=== PATIENT | female | born 1970 | race Caucasian/White ===

== ENCOUNTER → 2016-09-28 | Outpatient (CLI) | payer BC ==
[~2016-09-28] MED LIST: ACET-749 PO; CALC0.2510 PO; CALCTAB5 PO; LEVO175T3 PO; PHEN-876 PO
== END | disposition home or self-care (01) ==
LOC: C.PAPS 11:53
PROVIDERS: ATTEND Obstetrics & Gynecology
DX: Z01.419 Encounter for gynecological examination (general) (routine) without abnormal findings (principal)

== ENCOUNTER → 2017-01-09 | Outpatient (CLI) | payer BC ==
--- NOTE | 2017-01-10 07:58 | MAMMOGRAPHY REPORT ---
BILATERAL DIGITAL SCREENING MAMMOGRAM TOMOSYNTHESIS WITH CAD: 01/09/2017 CLINICAL HISTORY: Routine screening. Patient has no complaints. TECHNIQUE: Breast tomosynthesis in addition to standard 2D mammography was performed. Current study was also evaluated with a Computer Aided Detection (CAD) system. COMPARISON: Comparison is made to exams dated: 05/14/2014 mammogram, 05/08/2013 mammogram, 05/02/2012 mammogram, and 12/14/2010 mammogram - [facility]. BREAST COMPOSITION: There are scattered areas of fibroglandular density in both breasts. There are benign involutional changes compared to prior mammograms. FINDINGS: No new suspicious mass, architectural distortion or cluster of microcalcifications is seen . IMPRESSION: ACR BI-RADS CATEGORY 1: NEGATIVE There is no mammographic evidence of malignancy. A 1 year screening mammogram is recommended. The pa tient will receive written notification of the results. Approximately 10% of breast cancers are not detected with mammography. A negative mammographic report should not delay biopsy if a clinically suggestive mass is present. Keli Rust M.D. ay/:01/09/2017 17:04:09 Beamster: Donna VARELA(Rene)(Darrius), [facility] letter sent: Normal 1/2 BI-RADS Code: ACR BI-RADS Category 1: Negative
== END | disposition home or self-care (01) ==
LOC: C.MAMM 16:28
PROVIDERS: ATTEND Obstetrics & Gynecology
DX: Z12.31 Encounter for screening mammogram for malignant neoplasm of breast (principal)

== ENCOUNTER → 2017-12-28 | Outpatient (CLI) | payer OTHER ==
[~2017-12-28] MED LIST changes: -ACET-749 PO; +CALC-393 PO; -CALCTAB5 PO; -LEVO175T3 PO; +ONDA4TAB10 SL; -PHEN-876 PO; +THYR90TA PO; +TRAM-10 PO
--- NOTE | 2017-12-28 09:47 | DIAGNOSTIC IMAGING REPORT ---
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 Follow-up study in a patient with prior thyroidectomy. COMPARISON: Thyroid ultrasound 06/07/2015 TECHNIQUE: Multiple real time sonographic images of the thyroid bed were obtained accessing beckham scale appearance and color doppler flow. FINDINGS: Prior thyroidectomy. No focal mass or fluid collections about the thyroid bed. There are a few mildly prominent nonenlarged lymph nodes about the neck, largest which measures 1.1 x 0.3 x 0.9 cm with normal fatty hilum. Hypoechoic lymph node about the left neck is also seen measuring 1.1 x 0.4 x 0.8 cm, likely correlating with previously noted lymph node seen on study from 2016 which measured 0.6 x 0.7 x 0.4 cm. IMPRESSION: 1. Prior thyroidectomy without focal abnormality identified about the operative bed. 2. Mildly prominent nonenlarged lymph nodes about the left neck. No pathologically enlarged lymph nodes are identified. Attention at follow-up recommended. The above report was generated using voice recognition software. It may contain grammatical, syntax or spelling errors. Electronically signed by: Nixon Baker M.D. 12/28/2017 9:46 AM Dictated Date/Time: 12/28/2017 9:42 AM
== END | disposition home or self-care (01) ==
LOC: C.ULTR 09:07
PROVIDERS: ATTEND Internal Medicine Endocrinology, Diabetes & Metabolism
DX: C73 Malignant neoplasm of thyroid gland (principal); E89.0 Postprocedural hypothyroidism

== ENCOUNTER → 2018-01-10 | Outpatient (CLI) | payer OTHER ==
[2018-01-10 18:38] LABS: BLOOD UREA NITROGEN 16 mg/dl (7-18); CREATININE 0.82 mg/dl (0.60-1.20)
== END | disposition home or self-care (01) ==
LOC: C.LAB 17:32
PROVIDERS: ATTEND Urology
DX: C67.9 Malignant neoplasm of bladder, unspecified (principal)

== ENCOUNTER → 2018-01-11 | Outpatient (CLI) | payer OTHER ==
[~2018-01-11] MED LIST changes: +OPTIRAY 320 IV PRN
--- NOTE | 2018-01-11 09:19 | DIAGNOSTIC IMAGING REPORT ---
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 DELAYED UROGRAM TECHNIQUE: Multiaxial CT images of the abdomen and pelvis were performed following the use of intravenous contrast. A dose lowering technique was utilized adhering to the principles of ALARA. COMPARISON STUDY: 12/15/2017 FINDINGS: Lung bases are clear. Liver spleen and pancreas are unremarkable. Gallbladder is negative for distention. Kidneys enhance uniformly. Bowel pattern is considered nonobstructive. The adrenal glands are normal. Normal appendix. Uterus is anteflexed. It appears to demonstrate early potential myometrial fibroid involvement. Bladder is midline. Delayed images show no significant filling defect. There is no significant abdominal pelvic or inguinal jacinda pathology. Several small reactive nodes in the lateral region measuring up to 7 mm are noted bilaterally. IMPRESSION: 1. No acute process of the abdomen or pelvis. 2. Early fibroid uterus. 3. Otherwise negative study. The above report was generated using voice recognition software. It may contain grammatical, syntax or spelling errors. Electronically signed by: Jeromy Antoine M.D. 01/11/2018 9:17 AM Dictated Date/Time: 01/11/2018 9:03 AM
== END | disposition home or self-care (01) ==
LOC: C.CTS 08:24
PROVIDERS: ATTEND Urology
DX: C67.9 Malignant neoplasm of bladder, unspecified (principal); D25.9 Leiomyoma of uterus, unspecified

== ENCOUNTER 2021-10-19 08:18 | Inpatient (IN) ==
[2021-10-19] MEDS ORDERED: METOPROLOL TARTRATE 1 MG/ML VIAL IV STA ×3 (08:36→09:28)
[2021-10-19 09:00] LABS: Basophils # (auto) 0.01 K/uL (0-0.2); Basophils % (auto) 0.2 %; Eosinophils # (auto) 0.29 K/uL (0-0.5); Eosinophils % (auto) 4.4 %; Hematocrit (blood only) 45.6 % (37-47); Lymphocytes # (auto) 2.72 K/uL (1.2-3.4); Lymphocytes % (auto) 41.2 %; Mean Corpuscular Hemoglobin 27.5 pg (25-34); Mean Corpuscular Hgb Conc 32.9 g/dL (32-36); Mean Corpuscular Volume 83.7 fL (80-100); Mean Platelet Volume 10.4 fL (7.4-10.4); Monocytes # (auto) 0.48 K/uL (0.11-0.59); Monocytes % (auto) 7.3 %; Neutrophils % (auto) 46.9 %; Platelet Count 251 K/uL (130-400); RDW Coefficient of Variation 13.8 % (11.5-14.5); RDW Standard Deviation 41.9 fL (36.4-46.3); Red Blood Count 5.45 M/uL (4.2-5.4)
--- NOTE | 2021-10-19 09:11 | Emergency Department Note ---
Impression & Plan Atrial fibrillation with rapid ventricular response ED Provider Note INFORMANT: Patient ED PROVIDER(S): Marcelino Falk MD CHIEF COMPLAINT: Palpitations PLAN: Disposition: Admitted Condition: Good Outpatient prescription management: none Referral: None MEDICAL DECISION MAKING: Patient presented because of palpitations. She was found to be in rapid atrial fibrillation. Blood work was obtained.She was given 3 doses of IV metoprolol 5 mg. She still had mild tachycardia but did have improvement. A. fib was still present. Potassium was found to be slightly lower than expected threshold. The patient was given IV potassium. Chest x-ray was unremarkable. The patient and I discussed further management in the hospital. She was in agreement. [facility] The patient was evaluated in the emergency department admitted for further management. Triage Nursing notes reviewed and agree them. Vital Signs: reviewed and remarkable for tachycardia Differential: Premature contractions, electrolyte abnormality, cardiac dysrhythmia, thyroid dysfunction, pulmonary embolism, infection, gastrointestinal, as well as other pathologies. Diagnostics interpreted by me: ECG: Twelve-lead ECG reveals atrial fibrillation with rapid ventricular response at 130 bpm. Poor R wave progression anteriorly. No ST elevation or depression. No PVCs. Cardiac Monitoring: Cardiac monitoring ordered by me: The patient was placed on continuous cardiac monitoring and observed. It revealed atrial fibrillation at 142 bpm Imaging studies: Chest x-ray. Findings: A chest x-ray was performed and revealed no pneumothorax, effusion, infiltrate, pulmonary edema, free air under the diaphragm, or wide mediastinum. Impression: No acute disease. HPI: The patient is a 51 year old female who presents to the Emergency Room with complaints of palpitations. This started this morning and is persisting . The patient also notes the following associated symptoms, fluttering in her chest. Patient's Apple Watch said that she was in A. fib. The patient has taken no medication forrelieving factors. Current pain is rated as 0/10. No history of the same. Patient does have history of thyroid and bladder cancer.Pt denies LOC, headache, fevers, chills, diaphoresis, visual changes, neck pain, chest pain, breathing difficulties, nausea, vomiting, abdominal pain, back pain, melena, hematochezia, urinary symptoms, numbness, weakness, lymphadenopathy, rash, or other complaints. ROS: See above HPI for pertinent positives & negatives. A total of 10 systems reviewed and were otherwise negative. PAST MEDICAL HISTORY:See Below , bladder cancer, thyroid cancer on replacement PAST SURGICAL HISTORY:See Below, FAMILY HISTORY:See Below SOCIAL HISTORY:See Below, non-smoker. No alcohol. HOME MEDICATIONS:See Below ALLERGIES:See Below VITALS:See Below PHYSICAL EXAMINATION: GENERAL: Awake, alert, well-appearing, in no distress HENT: Normocephalic, atraumatic. Oropharynx unremarkable. EYES: Normal conjunctiva. Sclera non-icteric. NECK: Inspection normal. Non-tender. Supple. No nuchal rigidity. FROM. No masses. RESPIRATORY: Clear to auscultation. No wheezes. No rales. Normal respiratory effort. CARDIAC: Tachycardic rate. Irregular rhythm. No murmurs. No rubs. Extremities warm and well perfused. Pulses equal. No JVD. GI: Soft, non-distended. No tenderness to palpation. No rebound or guarding. No masses. RECTAL: Deferred. MUSCULOSKELETAL: Atraumatic. Chest examination reveals no tenderness. The back i s symmetrical on inspection without obvious abnormality. There is no CVA tenderness to palpation. No joint edema. LOWER EXTREMITIES: Calves are equal size bilaterally and non-tender. No edema. No discoloration. NEURO: Normal sensorium. No sensory or motor deficits noted. SKIN: No rash or jaundice noted. CRITICAL CARE: I have personally spent greater than 31 minutes of critical care time in the direct management of this patient. This includes bedside care, interpretation of diagnostic studies, and testing, discussion with consultants, patient, and other required patient management activities. These minutes are in excess of all separately billable procedures. Marcelino Falk MD Past Med/Surg History Medical History ASCUS of cervix with negative high risk HPV (04/2021) distant h/o LEEP -> repeat in 12 months (05/18) Hx of papillary thyroid carcinoma s/p thyroidectomy-1995 Hypoparathyroidism Hypothyroidism, postablative Transitional cell carcinoma of bladder Surgical History History of History of colonoscopy 2020 History of cystoscopy tumor removal History of esophagogastroduodenoscopy (EGD) History of loop electrical excision procedure (LEEP) History of neck surgery TO REMOVE LYMPH NODES Hx of dilation and curettage Hx of hand surgery left ulnar ligament repair Hx of tonsillectomy Hx of tooth extraction wisdom teeth Hx of total thyroidectomy Family History Father Melanoma Brother Thyroid cancer Hypertension Denies family history of Ovarian cancer Prostate cancer Myocardial infarction Breast cancer Colorectal cancer Social History Smoking Status: Never smoker Second Hand Exposure: No; Hx Alcohol Use: Yes Alcohol type: hard liquor Alcohol type Comment: social Alcohol Intake Frequency: Monthly or Less Hx Substance Use: No Preferred Language: Icelandic Communication Ability: Effective Visual Impairment: No Limitations Hearing Ability: Normal Theatre Director Required: No Beliefs That Will Affect Care: None marital status: Current Living Situation: Spouse Current Living Situation Comment: LIVES WITH SPOUSE, 2 CHILDREN 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al status: employed 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: [employer] Other Information That Helps Us Care for You: No 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 Feels Safe at Home: Yes Safety Concerns: Feels Safe At This Time Childhood Exposure to Second-Hand Smoke: No Dental Care, Regularly: Yes Physical Activity Frequency: 3-4 Times per Week Seatbelt Use: always Sunscreen Use: Yes Assistive Devices: Glasses Allergies Allergies Allergy/AdvReac Type Severity Reaction Status Date / Time Penicillins Allergy Intermediate rash Verified 10/19/21 09:12 oxycodone AdvReac Mild vomiting Verified 10/19/21 09:12 Home Meds Home Medications Medication Instructions Recorded Confirmed Calcium Patch 500 mg TRANSDERMAL DAILY PRN 12/20/20 10/19/21 calcitriol 0.25 mcg capsule 0.25 mcg PO BID 10/19/21 10/19/21 thyroid (pork) 15 mg tablet 15 mg PO QDL 10/19/21 10/19/21 ([place] Thyroid) thyroid (pork) 90 mg tablet 90 mg PO QAM 10/19/21 10/19/21 ([place] Thyroid) Previous Rx's Medication Instructions Recorded calcium carbonate 500 mg calcium 500 mg PO TID #90 tab 01/22/20 (1,250 mg) tablet Results & Data (ED) Vital Signs Vital Signs - 24 hr 10/19/21 08:20 10/19/21 08:34 10/19/21 08:43 Temperature 36.4 C L Temperature Source Temporal Artery Scan Pulse Rate 122 H 137 H 140 H Pulse Rate from SpO2 Sensor 118 H Respiratory Rate 18 27 H Respiratory Effort / Characteristics Non-Labored Respiratory Depth Normal Respiratory Pattern Regular Blood Pressure 150/102 H 149/109 H Blood Pressure Mean 118 Pulse Oximetry 100 99 Oxygen Delivery Method Room Air Sepsis Recent Fever Within 48 Hours No Sepsis New/Unexplained Change in Mental Status No Sepsis Action Taken by Nursing No Action Required 10/19/21 09:00 10/19/21 09:16 10/19/21 09:30 Temperature Temperature Source Pulse Rate 121 H 131 H 117 H Pulse Rate from SpO2 Sensor 113 H 109 H Respiratory Rate 23 21 Respiratory Effort / Characteristics Respiratory Depth Respiratory Pattern Blood Pressure 137/110 H 137/110 H 132/91 Blood Pressure Mean 119 104 Pulse Oximetry 98 96 Oxygen Delivery Method Sepsis Recent Fever Within 48 Hours Sepsis New/Unexplained Change in Mental Status Sepsis Action Taken by Nursing 10/19/21 09:40 10/19/21 10:00 10/19/21 10:15 Temperature Temperature Source Pulse Rate 113 H 110 H 158 H Pulse Rate from SpO2 Sensor 114 H 118 H Respiratory Rate 20 19 Respiratory Effort / Characteristics Respiratory Depth Respiratory Pattern Blood Pressure 132/91 118/89 Blood Pressure Mean 98 Pulse Oximetry 97 93 Oxygen Delivery Method Sepsis Recent Fever Within 48 Hours Sepsis New/Unexplained Change in Mental Status Sepsis Action Taken by Nursing 10/19/21 10:30 10/19/21 10:31 10/19/21 10:45 Temperature Temperature Source Pulse Rate 122 H 130 H 122 H Pulse Rate from SpO2 Sensor 121 H 119 H 118 H Respiratory Rate 18 26 H 26 H Respiratory Effort / Characteristics Respiratory Depth Respiratory Pattern Blood Pressure 129/106 H Blood Pressure Mean 113 Pulse Oximetry 99 94 99 Oxygen Delivery Method Sepsis Recent Fever Within 48 Hours Sepsis New/Unexplained Change in Mental Status Sepsis Action Taken by Nursing 10/19/21 11:00 Temperature Temperature Source Pulse Rate 124 H Pulse Rate from SpO2 Sensor 118 H Respiratory Rate 30 H Respiratory Effort / Characteristics Respiratory Depth Respiratory Pattern Blood Pressure 127/96 Blood Pressure Mean 106 Pulse Oximetry 98 Oxygen Delivery Method Sepsis Recent Fever Within 48 Hours Sepsis New/Unexplained Change in Mental Status Sepsis Action Taken by Nursing Laboratory Data Result diagrams: 10/19/21 08:45 10/19/21 08:45 Lab Results 10/19/21 10/19/21 10/19/21 Range/Units 08:45 08:45 08:45 WBC 6.60 (4.8-10.8) K/uL RBC 5.45 H (4.2-5.4) M/uL Hgb 15.0 (12.0-16.0) g/dL Hct 45.6 (37-47) % MCV 83.7 (80-100) fL MCH 27.5 (25-34) pg MCHC 32.9 (32-36) g/dL RDW Std Deviation 41.9 (36.4-46.3) fL RDW Coeff of Dayne 13.8 (11.5-14.5) % Plt Count 251 (130-400) K/uL MPV 10.4 (7.4-10.4) fL Immature Gran % (Auto) 0.0 % Neut % (Auto) 46.9 % Lymph % (Auto) 41.2 % [place] % (Auto) 7.3 % Eos % (Auto) 4.4 % Baso % (Auto) 0.2 % Neut # (Auto) 3.10 (1.4-6.5) K/uL Lymph # (Auto) 2.72 (1.2-3.4) K/uL [place] # (Auto) 0.48 (0.11-0.59) K/uL Eos # (Auto) 0.29 (0-0.5) K/uL Baso # (Auto) 0.01 (0-0.2) K/uL Immature Gran # (Auto) 0.00 (0.00-0.02) K/uL Sodium 141 (136-145) mmol/L Potassium 3.7 (3.5-5.1) mmol/L Chloride 105 (98-107) mmol/L Carbon Dioxide 30 (21-32) mmol/L Anion Gap 6 (3-11) BUN 18 (6-23) mg/dl Creatinine 0.84 (0.6-1.2) mg/dl Est Cr Clr Drug Dosing 83.3 ml/min Est GFR ( Amer) 93.3 ml/min Est GFR (Non-Af Amer) 80.5 ml/min BUN/Creatinine Ratio 21.4 H (10-20) Glucose 87 (70-99(Fasting)) mg/dl Calcium 9.5 (8.5-10.1) mg/dl Magnesium 2.2 (1.7-2.4) mg/dl Total Bilirubin 0.9 (0.2-1.0) mg/dl AST 17 (13-39) U/L ALT 23 (7-52) U/L Alkaline Phosphatase 107 H (34-104) U/L Troponin I High Sens 3.0 (0-14) pg/ml Total Protein 7.7 (6.0-8.3) gm/dl Albumin 4.7 (3.4-5.0) gm/dl Globulin 3.0 (2.5-4.0) gm/dl Albumin/Globulin Ratio 1.6 (0.9-2) TSH < 0.010 L (0.300-4.500) uIu/ml Free T4 0.81 (0.61-1.60) ng/dl SARS-CoV-2, RNA, NAAT (NEGATIVE) 10/19/21 Range/Units 08:45 WBC (4.8-10.8) K/uL RBC (4.2-5.4) M/uL Hgb (12.0-16.0) g/dL Hct (37-47) % MCV (80-100) fL MCH (25-34) pg MCHC (32-36) g/dL RDW Std Deviation (36.4-46.3) fL RDW Coeff of Dayne (11.5-14.5) % Plt Count (130-400) K/uL MPV (7.4-10.4) fL Immature Gran % (Auto) % Neut % (Auto) % Lymph % (Auto) % [place] % (Auto) % Eos % (Auto) % Baso % (Auto) % Neut # (Auto) (1.4-6.5) K/uL Lymph # (Auto) (1.2-3.4) K/uL [place] # (Auto) (0.11-0.59) K/uL Eos # (Auto) (0-0.5) K/uL Baso # (Auto) (0-0.2) K/uL Immature Gran # (Auto) (0.00-0.02) K/uL Sodium (136-145) mmol/L Potassium (3.5-5.1) mmol/L Chloride (98-107) mmol/L Carbon Dioxide (21-32) mmol/L Anion Gap (3-11) BUN (6-23) mg/dl Creatinine (0.6-1.2) mg/dl Est Cr Clr Drug Dosing ml/min Est GFR ( Amer) ml/min Est GFR (Non-Af Amer) ml/min BUN/Creatinine Ratio (10-20) Glucose (70-99(Fasting)) mg/dl Calcium (8.5-10.1) mg/dl Magnesium (1.7-2.4) mg/dl Total Bilirubin (0.2-1.0) mg/dl AST (13-39) U/L ALT (7-52) U/L Alkaline Phosphatase (34-104) U/L Troponin I High Sens (0-14) pg/ml Total Protein (6.0-8.3) gm/dl Albumin (3.4-5.0) gm/dl Globulin (2.5-4.0) gm/dl Albumin/Globulin Ratio (0.9-2) TSH (0.300-4.500) uIu/ml Free T4 (0.61-1.60) ng/dl SARS-CoV-2, RNA, NAAT NEGATIVE (NEGATIVE) Administered Medications Diltiazem HCl 125 mg/ Dextrose 125 mls @ 12.5 mls/hr IV .Q10H TAY; Protocol Stop: 11/18/21 11:29 Last Titration: 10/19/21 14:12 Dose: 12.5 mg/hr, 12.5 mls/hr Documented by: [id number] Cosigned by: [id number] Titration: 10/19/21 12:34 Dose: 10 mg/hr, 10 mls/hr Documented by: [id number] Cosigned by: [id number] Titration: 10/19/21 11:55 Dose: 7.5 mg/hr, 7.5 mls/hr Documented by: [id number] Cosigned by: [id number] Admin: 10/19/21 11:31 Dose: 5 mg/hr, 5 mls/hr Documented by: [id number] Cosigned by: [id number] Discontinued Medications Potassium Chloride (K Tyshawn / Wtr) 10 meq in 100 mls @ 100 mls/hr IV ONE ONE; Protocol Stop: 10/19/21 10:22 Last Infusion: 10/19/21 10:43 Dose: 0 mls/hr Documented by: [id number] Admin: 10/19/21 09:41 Dose: 100 mls/hr Documented by: [id number] Sodium Chloride (Nss 1000ml) 1,000 mls @ 999 mls/hr IV .Q1H1M ONE Stop: 10/19/21 10:25 Last Infusion: 10/19/21 10:44 Dose: 0 mls/hr Documented by: [id number] Admin: 10/19/21 09:41 Dose: 999 mls/hr Documented by: [id number] Metoprolol Tartrate (Metoprolol Tartrate 1 Mg/Ml Vial) 5 mg IV NOW STA Stop: 10/19/21 08:37 Last Admin: 10/19/21 08:43 Dose: 5 mg Documented by: [id number] Metoprolol Tartrate (Metoprolol Tartrate 1 Mg/Ml Vial) 5 mg IV NOW STA Stop: 10/19/21 09:13 Last Admin: 10/19/21 09:16 Dose: 5 mg Documented by: [id number] Metoprolol Tartrate (Metoprolol Tartrate 1 Mg/Ml Vial) 5 mg IV NOW STA Stop: 10/19/21 09:29 Last Admin: 10/19/21 09:40 Dose: 5 mg Documented by: [id number] Discharge Plan Visit Data Chief Complaint: Arrhythmia/Palpitations Stated Complaint: PALPITATIONS ED Provider: Marcelino Falk Discharge Problem: Atrial fibrillation with rapid ventricular response Patient Disposition: Admitted As Inpatient Discharge Instructions Interventions: ED Discharge Assessment Last Done: 10/19/21 13:14
[2021-10-19 09:17] LABS: Albumin Globulin Ratio 1.6 (0.9-2); Albumin Level 4.7 gm/dl (3.4-5.0); BUN Creatinine Ratio 21.4 (10-20); Bilirubin,Total 0.9 mg/dl (0.2-1.0); Calcium 9.5 mg/dl (8.5-10.1); Creatinine Clr Calc Pharmacy 83.3 ml/min; Est GFR (African American) 93.3 ml/min; Est GFR (Non-African American) 80.5 ml/min; Magnesium 2.2 mg/dl (1.7-2.4); Potassium 3.7 mmol/L (3.5-5.1); Total Protein 7.7 gm/dl (6.0-8.3)
[2021-10-19] MEDS ORDERED: POTASSIUM CHLORIDE / WTR 10 MEQ/100 ML PLCT IV ONE (09:23)
[2021-10-19] MEDS ORDERED: SODIUM CHLORIDE 0.9% 1000ML 1,000 ML IV ONE (09:25)
[2021-10-19 09:30] LABS: Thyroid Stimulating Hormone < 0.010 uIu/ml (0.300-4.500)
[2021-10-19 10:05] LABS: T4 Free Thyroxine 0.81 ng/dl (0.61-1.60)
--- NOTE | 2021-10-19 10:24 | History & Physical Report ---
Date of Service October 19, 2021 Assessment & Plan (1) Atrial fibrillation with rapid ventricular response: Plan: - Symptoms include palpitations, onset 7:30 AM this morning, with TSH undetectable in ED, thyroid suspected to be cause. No electrolyte abnormalities, no illness. - Potassium, NSS, 5 mg IV Lopressor x3 in ED without conversion to NSR. - Start Cardizem drip, order echo, consult cardiology for potential cardioversion should patient not convert with medications, given symptom onset within 12 hours, [id number] score of 1 (point for female gender). 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 (2) Hypothyroidism: Plan: - s/p thyroidectomy in 1995 for papillary thyroid CA. - Currently on [place] Thyroid 90 mg in the morning, 15 mg in the afternoon, with option to skip 15 mg dose if feeling too hyper, but has been taking it regularly as of late. Last TSH checked in Jun 2021 was 0.06 on this dose, no adjustments made at that time. - To discuss medications adjustments with endocrinology as above. Holding thyroid medication for at least today. (3) Hypoparathyroidism: Plan: - s/p thyroidectomy in 1995. - Calcium patch in AM, 500 mg calcium twice daily, and calcitriol 0.25 mcg twice daily. - Ca 9.5 today. - Follow on routine labs. (4) Bladder cancer: Plan: - History of in 2012, last positive biopsy in 2013, follows with urology regularly for cystoscopy q3 months with BCG therapy, off tx for September but to resume in October. Plan: - Admit to PCU. - SCDs for DVT ppx. - Full Code. History of Present Illness Chief Complaint: Palpitations x3 hours Primary Care Provider: ALYSSA Centeno Mrs. 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 Patient was on her way to work when she felt her heart racing. At a stoplight she observed a heart rate of 118 on her apple watch, and on the ECG lino, she was reported to be in A. fib. She presented to our ED immediately for evaluation. She has otherwise been without symptoms, she reports that on and off for the past few years she has experienced palpitations and has had her thyroid medications adjusted cortically, but had not experienced them recently and was in her normal state of health this week until this occurred. No chest pain/tightness, weakness, lightheadedness, dizziness, headache, shortness of breath, abdominal pain, nausea, vomiting. In the ED, she presented with HR 120s to 140s. Mildly hypertensive, otherwise vital signs within normal limits and stable. Labs significant for undetectable TSH, free T4 0.81. Found to be in A. fib with RVR on EKG. Allergies Allergy/AdvReac Type Severity Reaction Status Date / Time Penicillins Allergy Intermediate rash Verified 10/19/21 09:12 oxycodone AdvReac Mild vomiting Verified 10/19/21 09:12 Home Medications Medication Instructions Recorded Confirmed Type calcium carbonate 500 mg calcium 500 mg PO TID #90 tab 01/22/20 10/19/21 Rx (1,250 mg) tablet Calcium Patch 500 mg TRANSDERMAL DAILY PRN 12/20/20 10/19/21 History calcitriol 0.25 mcg capsule 0.25 mcg PO BID 10/19/21 10/19/21 History thyroid (pork) 15 mg tablet 15 mg PO QDL 10/19/21 10/19/21 History ([place] Thyroid) thyroid (pork) 90 mg tablet 90 mg PO QAM 10/19/21 10/19/21 History ([place] Thyroid) Past Med/Surg History Medical History ASCUS of cervix with negative high risk HPV (04/2021) distant h/o LEEP -> repeat in 12 months (05/18) Hx of papillary thyroid carcinoma s/p thyroidectomy-1995 Hypoparathyroidism Hypothyroidism, postablative Transitional cell carcinoma of bladder Surgical History History of History of colonoscopy 2020 History of cystoscopy tumor removal History of esophagogastroduodenoscopy (EGD) History of loop electrical excision procedure (LEEP) History of neck surgery TO REMOVE LYMPH NODES Hx of dilation and curettage Hx of hand surgery left ulnar ligament repair Hx of tonsillectomy Hx of tooth extraction wisdom teeth Hx of total thyroidectomy Family History Father Melanoma Brother Thyroid cancer Hypertension Denies family history of Ovarian cancer Prostate cancer Myocardial infarction Breast cancer Colorectal cancer Social History Smoking Status: Never smoker Second Hand Exposure: No; Hx Alcohol Use: Yes Alcohol type: hard liquor Alcohol type Comment: social Alco hol Intake Frequency: Monthly or Less Hx Substance Use: No Preferred Language: Albanian Communication Ability: Effective Visual Impairment: No Limitations Hearing Ability: Normal 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 Beliefs That Will Affect Care: None marital status: Current Living Situation: Spouse and Family Current Living Situation Comment: LIVES WITH SPOUSE, 2 CHILDREN 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al status: employed 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: [employer] 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 FAIRCHILD, no chest pain, tightness or palpitations Abdomen: No pain, nausea, vomiting, diarrhea or constipation : Denies dysuria, hematuria, increased urgency/frequency, urinary retention Musculoskeletal: No joint pain, calf pain, swelling Neurologic: No weakness, numbness/tingling, or balance problems Psychiatric: No anxiety or depression Skin: No rash or itch Physical Exam Physical Exam: General: awake, alert, no apparent distress Head: Normocephalic, atraumatic ENT: PERRL, EOMI, no pharyngeal exudate, mucous membranes moist Chest: Clear to auscultation, on room air, no adventitious breath sounds Cardiac: Irregularly irregular rhythm consistent with A. fib; no murmur, no JVD, normal peripheral pulses, good capillary refill Abdominal: NABS x 4 quadrants, soft, nontender to palpation, no rebound, guarding or tenderness Extremities: Normal inspection, no peripheral edema or erythema, calfs nontender to palpation Psych: Normal mood and affect Neuro: AAO x 3, strength intact bilaterally and rated 5/5, no motor deficits, speech is clear, no peripheral sensory deficits Skin: no rash or erythema Results & Data Results & Data ([facility]) Vital Signs (Past 12 Hours) Vital Signs Temp Pulse Resp BP Pulse Ox 10/19/21 10:00 110 H 20 118/89 97 10/19/21 09:40 113 H 132/91 10/19/21 09:30 117 H 21 132/91 96 10/19/21 09:16 131 H 137/110 H 10/19/21 09:00 121 H 23 137/110 H 98 10/19/21 08:43 140 H 149/109 H 10/19/21 08:34 137 H 27 H 99 10/19/21 08:20 36.4 C L 122 H 18 150/102 H 100 Laboratory Results Abnormal lab results 10/19/21 10/19/21 10/19/21 Range/Units 08:45 08:45 08:45 RBC 5.45 H (4.2-5.4) M/uL BUN/Creatinine Ratio 21.4 H (10-20) Alkaline Phosphatase 107 H (34-104) U/L TSH < 0.010 L (0.300-4.500) uIu/ml ECG Additional Comments: Atrial fibrillation with rapid ventricular response Cannot rule out Anterior infarct , age undetermined Abnormal ECG When compared with ECG of 12-APR-2020 09:50, Atrial fibrillation has replaced Sinus rhythm Vent. rate has increased BY 70 BPM QRS axis Shifted right ST now depressed in Lateral leads T wave inversion no longer evident in Inferior leads T wave amplitude has decreased in Lateral leads 25mm/s10mm/[id number] 241CID: 10U. Code Status & VTE Plan Code Status Full Code. Supervising Physician Co-Signing Physician Notes Attending Attestation & Admit Note: Pt seen/examined, chart reviewed, care plan d/w MITCH Lockwood. I agree w/ the weiss components of her documentation. Pleasant 51yo female with history of papillary thyroid ca s/p thyroidectomy, hypoparathyroidism, and bladder ca on BCG treatments who presented with the acute onset of rapid a.fib. Symptoms began about 0800 with rapid pulse & palpitations. She has an Apple Watch which correctly diagnosed her with a.fib. Upon seeing her phone showing this possible diagnosis she came to the ER for treatment. Presenting EKG indeed showed rapid a.fib. Despite 3 doses of IV lopressor 5mg her HRs have failed to slow to <100 BPM. During my assessment she was resting comfortably. Denies any recent heavy etoh intake, illnesses, or changes in her medications. Denies excessive caffeine intake or OTC medications. PMH/PSH/allergies/meds/sochx/famhx - reviewed vitals - HR>100, BP wnl, O2 sats wnl gen - NAD neck - no JVD heart - tachy, irregularly irregular, s1 s2, no murmur lungs - CTA b/l abd - soft NT ND BS+ ext - no edema, peripheral pulses 2+ b/l labs reviewed; TSH undetectable; FT4 0.8 K and mag and Ca wnl EKG - my reading - rapid a.fib, no ST changes A/P: New-onset paroxysmal a.fib with RVR. h/o papillary thyroid cancer. acquired hypothyroidism. iatrogenic hyperthyroidism with undetectable TSH. Admit to tele; cardizem infusion with HR goal <100; cards consult; echo. Lopressor IV prn. Will reach out to Dr Weber from endo re: her [place] Thyroid dose; may need dose decrease as iatrogenic hyperthyroidism from meds could be contributing to PAF risk. Defer that decision to Dr Weber. Hopefully patient will spontaneously convert to NSR. Low CHADS-VASc score thus defer on AC for now. Steffen Durant MD PG Care Time/CCT Total # of Minutes Spent Total Time Spent with Patient: Total time spent is greater than 50% in coordination of care (as documented) at patient's floor/unit and/or counseling patient: Coding Level of Care Code 62569 Initial Inpt Care Lvl 3 Diagnoses Atrial fibrillation with rapid ventricular response I48.91 Hypothyroidism E89.0 Hypothyroidism type: postoperative Bladder cancer C67.9 Hypoparathyroidism E20.9 (1) Hypothyroidism Hypothyroidism type: postoperative Qualified Code(s): E89.0 - Postprocedural hypothyroidism
[2021-10-19] MEDS ORDERED: STAT IV Infusion **Titration per Protocol STA (11:00)
[2021-10-19] MEDS: dilTIAZem HCL 125 MG in DEXTROSE 5% 100 ML IV SCH ×2 (11:31→22:23)
--- NOTE | 2021-10-19 13:14 | Electrocardiogram Report ---
Test Reason : Blood Pressure : / mmHG Vent. Rate : 130 BPM Atrial Rate : 125 BPM P-R Int : 000 ms QRS Dur : 086 ms QT Int : 310 ms P-R-T Axes : 000 065 038 degrees QTc Int : 456 ms Atrial fibrillation with rapid ventricular response Poor R wave progression, consider anterior MO vs. lead placement vs. LVH Abnormal ECG When compared with ECG of 12-APR-2020 09:50, Atrial fibrillation has replaced Sinus rhythm Vent. rate has increased BY 70 BPM Confirmed by Armen Azar ([id number]) on 10/19/2021 1:13:48 PM Referred By: REFERRED SELF Confirmed By:Armen Azar
[2021-10-19] MEDS ORDERED: POLYETHYLENE (MIRALAX) 17 GM PACK PO PRN (13:58)
[2021-10-19] MEDS ORDERED: ACETAMINOPHEN 325 MG TAB PO PRN (13:58)
[2021-10-19] MEDS ORDERED: ONDANSETRON INJ 2 MG/ML 2 ML VIAL IV PRN (13:58)
[2021-10-19] MEDS ORDERED: METOPROLOL TARTRATE 1 MG/ML VIAL IV PRN (14:27)
[2021-10-19] MEDS ORDERED: METOPROLOL TARTRATE 25 MG TAB PO STA (15:36)
--- NOTE | 2021-10-19 15:36 | Cardiology Consultation ---
Date of Consultation October 19, 2021 Assessment & Plan (1) Atrial fibrillation with rapid ventricular response: -episode likely secondary to over replacement of thyroid hormone. -ventricular response improving on diltiazem drip. -would add intravenous an oral beta blockade. -hopefully she will convert on her own. -CHADSVasc score is 1. -would hold off on long-term anticoagulation at this time. (2) Hypothyroidism: -management per hospitalist team and endocrinology. History of Present Illness Attending Physician: Steffen Durant History of Present Illness Mrs. Ledesma is a 51-year-old female admitted earlier today with atrial fibrillation and a rapid ventricular response. This consultation was ordered to assist in her cardiac management. The patient was in her usual state of health until approximately 730 this morning while driving to work. She had the abrupt onset of palpitations and a rapid and irregular heart rate. She checked her Apple watch which noted her heart rate to be in the 120-150 range with a read out of atrial fibrillation. She eventually presented to the emergency room for further care. On arrival here, patient was in atrial fibrillation with a rapid ventricular response. She was given 3 doses of intravenous metoprolol with little change in her ventricular response. She was then started on a diltiazem drip which helped control her ventricular response. The patient did not experience other symptoms such as chest pain, dyspnea, syncope, or presyncope with her atrial fibrillation. The patient has iatrogenic hypothyroidism as she had a complete thyroidectomy performed for papillary thyroid carcinoma back in 1995. She is currently taking [place] thyroid. Her TSH level was undetectable at the time of presentation today. Currently, patient is resting comfortably in bed noting only mild palpitations. Past medical and surgical history 1. Iatrogenic hypothyroidism 2. Iatrogenic hypoparathyroidism 3. Papillary thyroid carcinoma -1995 4. Complete thyroidectomy -1995 5. Transitional cell carcinoma of the bladder-BCG Rx, October 2012 6. D&C 7. LEEP 8. Left hand surgery 9. 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 Allergies Allergy/AdvReac Type Severity Reaction Status Date / Time Penicillins Allergy Intermediate rash Verified 10/19/21 09:12 oxycodone AdvReac Mild vomiting Verified 10/19/21 09:12 Home Medications Medication Instructions Recorded Confirmed Type calcium carbonate 500 mg calcium 500 mg PO TID #90 tab 01/22/20 10/19/21 Rx (1,250 mg) tablet Calcium Patch 500 mg TRANSDERMAL DAILY PRN 12/20/20 10/19/21 History calcitriol 0.25 mcg capsule 0.25 mcg PO BID 10/19/21 10/19/21 History thyroid (pork) 15 mg tablet 15 mg PO QDL 10/19/21 10/19/21 History ([place] Thyroid) thyroid (pork) 90 mg tablet 90 mg PO QAM 10/19/21 10/19/21 History ([place] Thyroid) Patient History Medical History ASCUS of cervix with negative high risk HPV (04/2021) distant h/o LEEP -> repeat in 12 months (05/18) Hx of papillary thyroid carcinoma s/p thyroidectomy-1995 Hypoparathyroidism Hypothyroidism, postablative Transitional cell carcinoma of bladder Surgical History History of History of colonoscopy 2020 History of cystoscopy tumor removal History of esophagogastroduodenoscopy (EGD) History of loop electrical excision procedure (LEEP) History of neck surgery TO REMOVE LYMPH NODES Hx of dilation and curettage Hx of hand surgery left ulnar ligament repair Hx of tonsillectomy Hx of tooth extraction wisdom teeth Hx of total thyroidectomy Family History Father Melanoma Brother Thyroid cancer Hypertension Denies family history of Ovarian cancer Prostate cancer Myocardial infarction Breast cancer Colorectal cancer Social History Smoking Status: Never smoker Second Hand Exposure: No; Hx Alcohol Use: Yes Alcohol type: hard liquor Alcohol type Comment: social Alcohol Intake Frequency: Monthly or Less Hx Substance Use: No Preferred Language: Icelandic Communication Ability: Effective Visual Impairment: No Limitations Hearing Ability: Normal Social Science Teacher Required: No Beliefs That Will Affect Care: None marital status: Current Living Situation: Spouse Current Living Situation Comment: LIVES WITH SPOUSE, 2 CHILDREN 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al status: employed 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: [employer] Other Information That Helps Us Care for You: No 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 HEENT exam is negative. Neck is supple with full carotid upstrokes. There are no carotid bruits. Jugular venous pressure is flat at 90. There is no thyromegaly. Cardiovascular exam reveals an irregularly irregular rhythm. No obvious murmurs. Lungs are clear without rales, rhonchi, or wheezes. Abdomen is soft and nontender without bruits. Extremities reveal intact radial artery and posterior tibial pulses bilaterally. There is no peripheral edema. Results & Data ([facility]) Vital Signs (Past 12 Hours) Vital Signs Temp Pulse Pulse Resp BP BP Pulse Ox 10/19/21 13:49 37.1 C 122 H 16 110/76 97 10/19/21 12:30 110 H 14 123/101 H 97 10/19/21 11:55 126 H 21 134/100 98 10/19/21 11:51 121 H 23 125/105 H 97 10/19/21 11:50 127 H 18 97 10/19/21 11:46 110 H 22 133/86 97 10/19/21 11:45 120 H 43 H 98 10/19/21 11:40 108 H 20 96 10/19/21 11:35 121 H 21 128/87 96 10/19/21 11:30 128 H 20 128/101 H 97 10/19/21 11:25 106 H 27 H 97 10/19/21 11:20 125 H 19 98 10/19/21 11:15 131 H 21 98 10/19/21 11:00 124 H 30 H 127/96 98 10/19/21 10:45 122 H 26 H 99 10/19/21 10:31 130 H 26 H 129/106 H 94 10/19/21 10:30 122 H 18 99 10/19/21 10:15 158 H 19 93 10/19/21 10:00 110 H 20 118/89 97 10/19/21 09:40 113 H 132/91 10/19/21 09:30 117 H 21 132/91 96 10/19/21 09:16 131 H 137/110 H 10/19/21 09:00 121 H 23 137/110 H 98 10/19/21 08:43 140 H 149/109 H 10/19/21 08:34 137 H 27 H 99 10/19/21 08:20 36.4 C L 122 H 18 150/102 H 100 Laboratory Results CBC notes hemoglobin 15.0, hematocrit 45.6, white count 6.6, and platelet count [id number]. Electrolytes note a sodium of 141, potassium 3.7, chloride 105, bicarb 30, BUN 18, creatinine 0.84, and glucose of 87. TSH was less than 0.01. Free T4 was 0.81. Diagnostic Findings EKG notes atrial fibrillation with a rapid ventricular response. Echocardiogram notes normal left ventricular systolic function without wall motion abnormalities. PG Care Time/CCT Total # of Minutes Spent Total Time Spent with Patient: Total time spent is greater than 50% in coordination of care (as documented) at patient's floor/unit and/or counseling patient: Coding Level of Care Code 43279 Office/OBS Consult Lvl 4 Diagnoses Atrial fibrillation with rapid ventricular response I48.91 Hypothyroidism E89.0 Hypothyroidism type: postoperative (1) Hypothyroidism Hypothyroidism type: postoperative Qualified Code(s): E89.0 - Postprocedural hypothyroidism
--- NOTE | 2021-10-19 16:06 | XCELERA ---
[id number]
[2021-10-19] MEDS: METOPROLOL TARTRATE 25 MG TAB PO SCH (21:51)
[2021-10-19] MEDS: CALCIUM CARBONATE 1250MG TAB PO SCH (22:23)
[2021-10-19] MEDS: CALCITRIOL 0.25 MCG CAPSULE PO SCH (22:23)
[2021-10-20] MEDS ORDERED: SODIUM CHLORIDE 0.9% 1000ML 1,000 ML IV ONE (01:11)
[2021-10-20] MEDS ORDERED: CALCIUM 500 MG TD SCH (09:00)
[2021-10-20] MEDS: CALCIUM CARBONATE 1250MG TAB PO SCH (09:07)
[2021-10-20] MEDS: CALCITRIOL 0.25 MCG CAPSULE PO SCH (09:07)
[2021-10-20] MEDS: METOPROLOL TARTRATE 25 MG TAB PO SCH (09:40)
--- NOTE | 2021-10-20 12:55 | Discharge Summary ---
Date of Service October 20, 2021 Admission HPI Per Admitting Provider Mrs. 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 Patient was on her way to work when she felt her heart racing. At a stoplight she observed a heart rate of 118 on her apple watch, and on the ECG lino, she was reported to be in A. fib. She presented to our ED immediately for evaluation. She has otherwise been without symptoms, she reports that on and off for the past few years she has experienced palpitations and has had her thyroid medications adjusted cortically, but had not experienced them recently and was in her normal state of health this week until this occurred. No chest pain/tightness, weakness, lightheadedness, dizziness, headache, shortness of breath, abdominal pain, nausea, vomiting. In the ED, she presented with HR 120s to 140s. Mildly hypertensive, otherwise vital signs within normal limits and stable. Labs significant for undetectable TSH, free T4 0.81. Found to be in A. fib with RVR on EKG. Discharge Data Allergies Allergy/AdvReac Type Severity Reaction Status Date / Time Penicillins Allergy Intermediate rash Verified 10/19/21 09:12 oxycodone AdvReac Mild vomiting Verified 10/19/21 09:12 Consultations 10/19/21 11:48 ED Decision to Admit Stat 10/19/21 13:58 Consult Cardiology Routine Hospital Course (1) Atrial fibrillation with rapid ventricular response: - Symptoms include palpitations, onset 7:30 AM this morning, with TSH undetectable in ED, thyroid suspected to be cause. No electrolyte abnormalities, no illness. - Potassium, NSS, 5 mg IV Lopressor x3 in ED without conversion to NSR. - Start Cardizem drip, order echo, consult cardiology for potential cardioversion should patient not convert with medications, given symptom onset within 12 hours, [id number] score of 1 (point for female gender). 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 (2) Hypothyroidism: - s/p thyroidectomy in 1995 for papillary thyroid CA. - Currently on [place] Thyroid 90 mg in the morning, 15 mg in the afternoon, with option to skip 15 mg dose if feeling too hyper, but has been taking it regularly as of late. Last TSH checked in Jun 2021 was 0.06 on this dose, no adjustments made at that time. - To discuss medications adjustments with endocrinology as above. Holding thyroid medication for at least today. (3) Hypoparathyroidism: - s/p thyroidectomy in 1995. - Calcium patch in AM, 500 mg calcium twice daily, and calcitriol 0.25 mcg twice daily. - Ca 9.5 today. - Follow on routine labs. (4) Bladder cancer: - History of in 2012, last positive biopsy in 2013, follows with urology regularly for cystoscopy q3 months with BCG therapy, off tx for September but to resume in October. Discharge Plan Discharge Items Patient Disposition: Home - Self-Care Reason For Visit: New-onset Atrial Fibrillation Discharge Diagnosis: Atrial fibrillation - resolved, converted back to normal rhythm Activity: Resume your previous activity Non-emergency contact: Primary Care Provider, Specialist and [employer] Call non-emergency contact if: you have any medication questions and your s ymptoms worsen Follow-up/Referrals: Armen Azar MD [Physician] - (3-4 weeks - dx: a.fib ) Duncan Weber MD [Physician] - (2-3 weeks for recheck of thyroid ) Gill Prather CRNP [Primary Care Provider] - (1 week) Diet: Regular Addtl Attending Provider Instructions: Luiz Cuevas were admitted to [facility] after presenting with rapid atrial fibrillation (also known as "a.fib"). A.fib is an irregular heart rhythm that originates from the top portion of the heart. There are numerous causes of a.fib including hyperthyroidism, abnormal electrolytes (low magnesium, low potassium), blood clots of the lungs, various heart conditions, etc. It is likely that too much thyroid medication contributed to the development of your a.fib. You were treated with 2 medications to slow the heart rate down. Early in the AM of 10/20 your heart spontaneously converted back to normal rhythm from a.fib. You have remained in normal rhythm since then. Your echocardiogram (heart ultrasound) showed normal heart function, normal anatomy, and normal heart valves. Dr Brian Azar from [facility] saw you in consult. He recommends the following - * metoprolol 25mg twice daily, first dose tonight * this medication will help slow your heart rate if you go back into a.fib at home * follow-up with him in 3-4 weeks at the cardiology clinic * NO ANTICOAGULATION (blood thinner medication) at this time Although a.fib carries a risk of stroke, we perform a calculation on your risk of having such and your risk is very low at this time. Thus, blood thinner medication can be deferred. In addition, we corresponded with Dr Weber from endocrinology and, given your undetectable TSH level (your TSH was 0) - he has recommended - * STOP your Charlotte thyroid medication * STOP cytomel (if you were still taking it) * CHANGE to levothyroxine 125mcg once daily every morning; first dose tomorrow, 10/21/21 * follow-up with Dr Weber in 2-3 weeks Continue to wear your Apple Watch and observe for any a.fib recurrence. If you develop a.fib once again, and if you are having symptoms (palpitations, chest pain, dizziness, lightheadedness, shortness of breath) and/or your heart rate remains high (>100 consistently) -- please seek medical attention right away. If you are ever in doubt about recurrent a.fib please contact your medical providers. Follow-up - see separate section Return to [facility] if - * you develop a.fib once again and your heart rate is consistently over 100 and/or you are having a.fib symptoms as noted above * any other concerns It was our pleasure to care for you at [facility]! Dr Durant Pending Studies at Discharge: No Stand-Alone Forms: My [facility], Smoking Cessation Medications and DC Order Prescriptions: New metoprolol tartrate 25 mg Tablet 25 mg PO BID Qty: 60 RF: 5 levothyroxine 125 mcg capsule 125 mcg PO DAILY Qty: 30 RF: 2 Continued calcium carbonate 500 mg calcium (1,250 mg) tablet 500 mg PO TID Qty: 90 RF: 0 calcitriol 0.25 mcg Capsule 0.25 mcg PO BID RF: 0 Calcium Patch 500 mg transdermal DAILY PRN (Reason: tingling) RF: 0 Discontinued thyroid (pork) [Charl[place] Thyroid] 15 mg tablet 15 mg PO QDL RF: 0 thyroid (pork) [[place] Thyroid] 90 mg tablet 90 mg PO QAM RF: 0 Discharge Orders: Discharge Order (Routine); Ordered 10/20/21 Ordered By: Steffen Emmanuel/Other Patient Handouts: Understanding Atrial Fibrillation Admission Data Admit Date/Time: 10/19/21 11:13 Attending Provider: Steffen Durant Admit Provider: Steffen Durant Primary Care Provider: Gill Prather Other Providers: Steffen Durant ; Armen Azar Coding Diagnoses Atrial fibrillation with rapid ventricular response I48.91 Hypothyroidism E89.0 Hypothyroidism type: postoperative Hypoparathyroidism E20.9 Bladder cancer C67.9
== END 2021-10-20 14:15 | disposition home or self-care (01) | DRG 310 ==
LOC: ED 08:18 → 2S 11:13
DX: E89.0 Postprocedural hypothyroidism; Z88.8 Allergy status to other drugs, medicaments and biological substances; Z88.0 Allergy status to penicillin; Z85.850 Personal history of malignant neoplasm of thyroid; C67.9 Malignant neoplasm of bladder, unspecified; T38.1X5A Adverse effect of thyroid hormones and substitutes, initial encounter; E05.90 Thyrotoxicosis, unspecified without thyrotoxic crisis or storm; Z90.09 Acquired absence of other part of head and neck; I48.0 Paroxysmal atrial fibrillation